=== PATIENT | female | born 1990 | race Caucasian/White ===

== ENCOUNTER 2018-05-13 10:07 | Outpatient (CLI) | payer OTHER ==
[2018-05-13] MEDS ORDERED: Iopamidol 370 76% 100 ML VIAL ONE (13:26)
--- NOTE | 2018-05-13 13:44 | CT ---
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 This is a followup from the surgery. The patient is currently 28 years of age. COMPARISON: No comparisons are available. FINDINGS: There is graft material seen involving the descending thoracic aorta with smooth tapering to an aorti c diameter of 1.6 cm. The aortic arch measures 1.8 cm. The ascending aorta at the level of the righ t main pulmonary artery measures 2.6 cm. The descending thoracic aorta at the level of the right valdez tricle measures 1.8 cm. The aorta at the level of the hiatus measures 1.3 cm. The origin of the lef t subclavian artery is not seen. The left subclavian artery is fed by retrograde flow through the le ft vertebral artery. The right vertebral artery, right brachiocephalic, and right subclavian origins are widely patent. The common carotid artery origins are widely patent. No central pulmonary embol us is evident. The visualized upper abdomen is unremarkable. No definite acute osseous abnormality is evident. IMPRESSION: 1. Postprocedural change consistent with coarctation repair with graft material seen involving the d escending thoracic aorta. There is smooth tapering of the aorta at the level of the interposed graft to a size of 1.5 cm. There is no evidence of aneurysmal dilatation. 2. The left subclavian artery is fed with retrograde flow from the left vertebral artery. The origi n of the left subclavian artery from the aortic arch is not demonstrated and may be atretic or surgic ally removed. POS: [facility]
== END 2018-05-13 10:08 | disposition home or self-care (01) ==
LOC: CT 10:07
PROVIDERS: ATTEND Internal Medicine Cardiovascular Disease
DX: Q25.1 Coarctation of aorta (principal); Z98.890 Other specified postprocedural states
CPT/HCPCS: 71275